=== PATIENT | female | born 1955 | race Caucasian/White ===

== ENCOUNTER 2021-04-01 09:11 | Emergency (ER) | payer MEDICARE ==
[~2021-04-01] VITALS: Ht 157.5 cm; Wt 67.1 kg
[~2021-04-01 09:11] MED LIST: AZITHROMYCIN 2250 MG PO; CIPROFLOXACIN500 M1 PO; CODEINE-GUAIFE120 ML PO; CRESTOR20 MG PO; FLONASE 0.05%50 MCG; PRILOSEC20 MG PO; TYLENOL PM; ZOFRAN4 MG PO
[2021-04-01] MEDS ORDERED: PROAIR HFA8.5 GM INH (09:46)
[2021-04-01] MEDS ORDERED: ZOFRAN ODT4 MG DISSOLVE (09:46)
[2021-04-01] MEDS ORDERED: VISTARIL 25 MG25 M1 PO (11:36)
[2021-04-01 12:03] VITALS: BP 140/90
== END 2021-04-01 12:04 | disposition home or self-care (01) ==
LOC: M.ERS 09:11
DX: U07.1 COVID-19 (principal); J40 Bronchitis, not specified as acute or chronic; F41.9 Anxiety disorder, unspecified; K21.9 Gastro-esophageal reflux disease without esophagitis; E78.5 Hyperlipidemia, unspecified; Z90.49 Acquired absence of other specified parts of digestive tract; Z90.710 Acquired absence of both cervix and uterus; Z88.0 Allergy status to penicillin; Z88.2 Allergy status to sulfonamides; Z88.1 Allergy status to other antibiotic agents